=== PATIENT | male | born 1940 | race Caucasian/White ===

== ENCOUNTER 2024-02-05 05:33 | Day surgery (SDC) | payer MEDICARE ==
[2024-01-25 14:26] VITALS: BMI 24.2
[2024-02-05] MEDS ORDERED: LevoFLOXacin D5W 500 mg (100 mL) BAG ONE (07:03)
[2024-02-05] MEDS ORDERED: Lidocaine 1% PF 5 ML VIAL ONE (07:18)
[2024-02-05] MEDS ORDERED: PHENYLEPHRINE-NS 100 MCG/ML 10 ML SYRINGE ONE (07:18)
[2024-02-05] MEDS ORDERED: fentaNYL PF 100 MCG/2 ML SYRINGE ONE (07:18)
[2024-02-05] MEDS ORDERED: Glycopyrrolate 0.2 MG/ML 5 ML SYRINGE ONE (07:18)
[2024-02-05] MEDS ORDERED: Ondansetron PF 4 MG/2 ML Vial ONE (07:18)
[2024-02-05] MEDS ORDERED: Dexamethasone 20 MG/5 ML VIAL ONE (07:18)
[2024-02-05] MEDS ORDERED: Rocuronium Bromide 10 MG/ML (10ML VIAL) ONE (07:18)
[2024-02-05] MEDS ORDERED: PROPOFOL 20 ML ONE (07:18)
[2024-02-05] MEDS ORDERED: fentaNYL 50 mcg/mL 1 mL Vial ONE (08:23)
[2024-02-05] MEDS ORDERED: SUGAMMADEX SODIUM 200 MG/2 ML VIAL ONE (09:01)
[2024-02-05] MEDS ORDERED: Oxybutynin 5 MG TAB ONE (10:24)
[2024-02-05] MEDS ORDERED: Phenazopyridine HCl 100 MG TAB ONE (10:25)
== END 2024-02-05 15:30 | disposition home or self-care (01) ==
LOC: SDC 05:33
PROVIDERS: ATTEND Urology
PROC: 0VT08ZZ Resection of Prostate, Via Natural or Artificial Opening Endoscopic (ICD-10-PCS; principal; 2024-02-05)
DX: N40.1 Benign prostatic hyperplasia with lower urinary tract symptoms (principal); N13.8 Other obstructive and reflux uropathy; N32.81 Overactive bladder; I25.10 Atherosclerotic heart disease of native coronary artery without angina pectoris; E78.00 Pure hypercholesterolemia, unspecified; I11.9 Hypertensive heart disease without heart failure; Z79.899 Other long term (current) drug therapy
CPT/HCPCS: 52601; A4333; J1100; J1956; J2405; J2704; J3010; 88305

== ENCOUNTER 2025-03-23 13:27 | Outpatient (CLI) | payer MEDICARE | END 2025-03-23 13:28 | disposition home or self-care (01) | LOC: RAD 13:27 | PROVIDERS: ATTEND Internal Medicine | DX: R06.00 Dyspnea, unspecified (principal) | CPT/HCPCS: 71046 ==